=== PATIENT | male | born 1975 ===

== ENCOUNTER 2017-05-09 08:29 | Emergency (ER) | payer MEDICAID, OTHER ==
[2017-05-09 08:42] VITALS: TEMP 98.3
[2017-05-09 08:43] VITALS: BMI 36.9
[2017-05-09] MEDS ORDERED: Sodium Chloride 0.9% 1,000 ML IV STA ×2 (09:30→10:58)
--- NOTE | 2017-05-09 10:02 | ED PDOC ---
HPI: Headache Time Seen by Provider: 05/09/17 08:45 Chief Complaint (Nursing): Headache Chief Complaint (Provider): Nausea/Vomiting/Headache History Per: Patient History/Exam Limitations: no limitations Onset/Duration Of Symptoms: Days (x1) Additional Complaint(s): Brandon See, 41 year old male presents to the ED for nausea, vomiting, chest pain, fever, headache, and whole body pain occurring since yesterday 8: 00. The patient states he visited a hospital located in [facility] yesterday and was told he has Lyme Disease. He was prescribed antibiotics, Augmentin, for his sinuses which he started taking. He states working outdoors and was bitten by a mosquito 2 weeks prior to arrival. He has taken Motrin, without relief. Of note, upon initial observation, patient was seen eating a cup of noodles and in no distress. PMD: None Provided Past Medical History Reviewed: Historical Data, Nursing Documentation, Vital Signs Vital Signs: Last Vital Signs Temp 98.3 F 05/09/17 08:42 Pulse 106 H 05/09/17 08:42 Resp 16 05/09/17 08:42 BP 145/95 H 05/09/17 08:42 Pulse Ox 97 05/09/17 08:42 - Medical History PMH: HTN Denies: Chronic Kidney Disease - Surgical History Surgical History: Cholecystectomy - Family History Family History: States: Unknown Family Hx - Social History Current smoker - smoking cessation education provided: No Alcohol: None Drugs: Cannabis - Immunization History Hx Tetanus Toxoid Vaccination: No Hx Influenza Vaccination: No Hx Pneumococcal Vaccination: No - Home Medications Home Medications: Ambulatory Orders Medication Instructions Recorded No Known Home Med 06/13/13 - Allergies Allergies/Adverse Reactions: Allergies Allergy/AdvReac Type Severity Reaction Status Date / Time No Known Allergies Allergy Unverified 06/13/13 16:14 Review of Systems ROS Statement: Except As Marked, All Systems Reviewed And Found Negative Constitutional: Positive for: Fever Cardiovascular: Positive for: Chest Pain Gastrointestinal: Positive for: Nausea, Vomiting Musculoskeletal: Positive for: Other (generalized body aches ) Neurological: Positive for: Headache Physical Exam - Reviewed Nursing Documentation Reviewed: Yes Vital Signs Reviewed: Yes - Physical Exam Appears: Positive for: Well, Non-toxic, No Acute Distress Head Exam: Positive for: ATRAUMATIC, NORMAL INSPECTION, NORMOCEPHALIC Skin: Positive for: Normal Color, Warm, DRY Eye Exam: Positive for: EOMI, Normal appearance, PERRL ENT: Positive for: Normal ENT Inspection Neck: Positive for: Normal, Painless ROM Cardiovascular/Chest: Positive for: Regular Rate, Rhythm Respiratory: Positive for: CNT, Normal Breath Sounds Gastrointestinal/Abdominal: Positive for: Normal Exam, Bowel Sounds, Soft Back: Positive for: Normal Inspection Extremity: Positive for: Normal ROM Neurologic/Psych: Positive for: Alert, Oriented - Laboratory Results Result Diagrams: 05/09/17 10:00 05/09/17 10:00 - ECG O2 Sat by Pulse Oximetry: 97 (RA) Pulse Ox Interpretation: Normal Medical Decision Making Medical Decision Making: Impression: Nausea, Vomiting Plan: * COMP Metabolic Panel Stat * CPK Stat * CBC (With Differential) Stat * Urine Culture Stat * Urinalysis Stat * Sodium Chloride 0.9% 1,000 ml IV 150 mls/hr * Pepcid 20 mg IVP Stat * Toradol 30 mg IV Once * Zofran Inj IV Once * Morphine 4 mg IV Once * Reglan 10 mg IVP * Unasyn 3 gm Sodium Chloride 0.9% 100 ml IVPB * CT Head W/O Contrast * Reevaluation 13:26 CT Head FINDINGS: HEMORRHAGE: No intracranial hemorrhage. BRAIN: No mass effect or edema. No atrophy or chronic microvascular ischemic changes. 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 These are unchanged compared to the examination of 2009. VENTRICLES: Unremarkable. No hydrocephalus. CALVARIUM: Unremarkable. PARANASAL SINUSES: Mild chronic ethmoid sinusitis. MASTOID AIR CELLS: Unremarkable as visualized. No inflammatory changes. OTHER FINDINGS: None. IMPRESSION: No intracranial mass, hemorrhage or evidence of acute infarct. Mild chronic ethmoid sinusitis. Otherwise unremarkable. Pt felt better with the medications. Discussed possibility with patient that could be sinusitis, or viral illness. given first dose of iv antibiotics in event of bacterial sinusitis. pt actually has prescription for augmentin. I did discuss w patient that pt could be having symptoms of meningitis and would need to perform an LP to rule that out. explained the procedure and risks and benefits of LP. however pt adamantly refused LP and states is feeling better now. throughout ER stay, pt texting on phone or resting comfortably. labs and imaging reviewed. noted sinusitis on CT head. discussed all results [facility] pt referred pt for outpt follow up w clinic, given research project manager service for outpt follow up. Scribe Attestation: Documented by Marianna Woodward, acting as a scribe for Lucio Minor MD. Provider Scribe Attestation: All medical record entries made by the Scribe were at my direction and personally dictated by me. I have reviewed the chart and agree that the record accurately reflects my personal performance of the history, physical exam, medical decision making, and the department course for this patient. I have also personally directed, reviewed, and agree with the discharge instructions and disposition. Disposition - Clinical Impression Clinical Impression: Sinusitis, Dehydration - Patient ED Disposition Is Patient to be Admitted: No Counseled Patient/Family Regarding: Studies Performed, Diagnosis, Need For Followup - Disposition Referrals: [facility] [Outside] [facility] [Outside] Disposition: Routine/Home Disposition Time: 10:00 Condition: IMPROVED Additional Instructions: follow up with your primary doctor in 1-2 days return to the ED with any worsening or concerning symptoms. Instructions: Dehydration (ED), Sinusitis (ED)
[2017-05-09 10:14] LABS: RBC URINE < 1 /hpf (0-3); URINE BILIRUBIN NEGATIVE (NEGATIVE); URINE BLOOD SMALL (NEGATIVE); URINE COLOR STRAW (YELLOW); URINE GLUCOSE (UA) NEG (Normal); URINE KETONE NEGATIVE (NEGATIVE); URINE LEUKOCYTE ESTERASE NEG Leu/uL (Negative); URINE PROTEIN NEGATIVE (NEGATIVE); URINE UROBILINOGEN 0.2-1.0 mg/dL (0.2-1.0); WBC URINE 1 /hpf (0-5)
[2017-05-09 10:20] LABS: BASO % 0.3 % (0.0-2.0); HEMATOCRIT 35.4 % (35.0-51.0); LYMPH # 1.4 K/uL (1.0-4.3); LYMPH % 10.1 % (20.0-40.0); MEAN CELL VOLUME 70.6 fl (80.0-94.0); MEAN CORPUSCULAR HEMOGLOBIN 21.8 pg (27.0-31.0); MEAN CORPUSCULAR HGB CONC 30.9 g/dL (33.0-37.0); MEAN PLATELET VOLUME 9.4 fl (7.2-11.7); MONO # 1.1 K/uL (0.0-0.8); MONO % 7.8 % (0.0-10.0); NEUT # 11.5 K/uL (1.8-7.0); NEUT % 81.8 % (50.0-75.0); RED CELL DISTRIBUTION WIDTH 15.8 % (11.5-14.5)
[2017-05-09 10:22] LABS: ALB/GLOB RATIO 1.3 (1.0-2.1); ALKALINE PHOSPHATASE 102 U/L (38-126); ALT/SGPT 80 U/L (21-72); AST/SGOT 54 U/L (17-59); BILIRUBIN,TOTAL 0.7 mg/dl (0.2-1.3); BLOOD UREA NITROGEN 10 mg/dl (9-20); CALCIUM 9.1 mg/dL (8.4-10.2); CARBON DIOXIDE 26 mmol/L (22-30); CHLORIDE 100 mmol/L (98-107); GFR AFRICAN-AMERICAN > 60; GLUCOSE,RANDOM 101 mg/dL (75-110); POTASSIUM 3.6 MMOL/L (3.6-5.0); SODIUM 138 mmol/l (132-148); TOTAL PROTEIN 8.1 G/DL (6.3-8.2)
[2017-05-09] MEDS ORDERED: Morphine 4 MG/ML VIAL IV ONE (10:58)
[2017-05-09 12:30] VITALS: BP 134/85; PULSE 88; RESP 14
--- NOTE | 2017-05-09 13:12 | CT ---
PROCEDURE: CT HEAD WITHOUT CONTRAST. HISTORY: headache COMPARISON: 08/13/2009 TECHNIQUE: Axial computed tomography images were obtained through the head/brain without intravenous contrast. Radiation dose: Total exam DLP = 904.07 mGy-cm. This CT exam was performed using one or more of the following dose reduction techniques: Automated exposure control, adjustment of the mA and/or kV according to patient size, and/or use of iterative reconstruction technique. FINDINGS: HEMORRHAGE: No intracranial hemorrhage. BRAIN: No mass effect or edema. No atrophy or chronic microvascular ischemic changes. 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 These are unchanged compared to the examination of 2008. VENTRICLES: Unremarkable. No hydrocephalus. CALVARIUM: Unremarkable. PARANASAL SINUSES: Mild chronic ethmoid sinusitis. MASTOID AIR CELLS: Unremarkable as visualized. No inflammatory changes. OTHER FINDINGS: None. IMPRESSION: No intracranial mass, hemorrhage or evidence of acute infarct. Mild chronic ethmoid sinusitis. Otherwise unremarkable.
[2017-05-09 13:27] VITALS: O2SAT 97
[2017-05-09] MEDS ORDERED: Ampicillin/Sulbactam 3 GM in Sodium Chloride 0.9% 100 ML IVPB STA (13:47)
--- NOTE | 2017-05-11 06:13 | CARD ---
APPROVED REPORT EKG Measurement Heart [id number] <Conclusion> Sinus tachycardia Otherwise normal ECG
== END 2017-05-09 16:12 | disposition home or self-care (01) ==
LOC: H.ER 08:29
DX: E86.0 Dehydration (principal); J32.2 Chronic ethmoidal sinusitis; I10 Essential (primary) hypertension